=== PATIENT | male | born 1965 | race Two or more races ===

== ENCOUNTER 2016-11-30 11:23 | Emergency (ER) | payer MEDICAID, OTHER ==
[~2016-11-30] VITALS: Ht 165.1 cm; Wt 84.3 kg
[2016-11-30 11:25] VITALS: BP 123/81
[2016-11-30] MEDS ORDERED: SODIUM CHLORIDE 0.9% 1,000ML IVBOLUS ONE (12:30)
[2016-11-30 12:35] LABS: BLOOD UREA NITROGEN 67 mg/dL (7-18)
[2016-11-30 12:46] LABS: HEMATOCRIT 39.9 % (39.2-51.8); HEMOGLOBIN 13.7 g/dL (13.7-18.0); WHITE BLOOD COUNT 7.5 x10^3/uL (3.4-10)
== END 2016-11-30 14:34 | disposition home or self-care (01) ==
LOC: ED 13:17
DX: E11.22 Type 2 diabetes mellitus with diabetic chronic kidney disease (principal); N18.3 Chronic kidney disease, stage 3 (moderate); E11.65 Type 2 diabetes mellitus with hyperglycemia; E86.0 Dehydration
CPT/HCPCS: 36415; 80048; 83605; 85025; 96360; 99284; J7030